=== PATIENT | female | born 1945 | race Caucasian/White ===

== ENCOUNTER 2020-11-06 11:26 | Day surgery (SDC) | payer MEDICARE ==
[2020-11-06] VITALS (10 sets, daily range): BP systolic 107–145; BP diastolic 68–87
[~2020-11-06] VITALS: Ht 165.1 cm; Wt 47.7 kg
[~2020-11-06 11:26] MED LIST: CALC300T4 PO; CHOL200035 PO; ESCI10TA PO; ESTR10IN PO; LISI10TA27 PO; MAGN200T5 PO; MIRA25TA PO; PRAV40TA3 PO; TRET40CR9 TOP
[2020-11-06] MEDS ORDERED: normal saline 1000ml 1,000 ML IV PRN (11:55)
[2020-11-06] MEDS ORDERED: LIDOcaine 1%/PF 5ML 10 MG/ML VIAL ONE (12:40)
[2020-11-06] MEDS ORDERED: glucagon, human recombinant 1mg kit ONE (12:40)
[2020-11-06] MEDS ORDERED: fentaNYL/PF 50MCG/1 ML 2ML syringe ONE (12:41)
[2020-11-06] MEDS ORDERED: iohexol 300 MG/1 ML 50ml polymer ONE (12:41)
[2020-11-06] MEDS ORDERED: midazolam 1 mg/ML 2ml injection ONE (12:41)
[2020-11-06] MEDS ORDERED: ALBU8.5H8 INH (12:53)
[2020-11-06] MEDS ORDERED: FAMO-128 PO (12:53)
[2020-11-06] MEDS ORDERED: LORA10TA7 PO (12:53)
[2020-11-06] MEDS ORDERED: OLAN2.5T3 PO (12:53)
[2020-11-06] MEDS ORDERED: ONDA4TAB6 PO (12:53)
[2020-11-06] MEDS ORDERED: PROC-8 PO (12:53)
[2020-11-06] MEDS ORDERED: VITA100T PO (12:53)
[2020-11-06] MEDS ORDERED: DEXA1TAB PO (12:53)
[2020-11-06] MEDS ORDERED: HYDR28CR14 TOP (12:53)
[2020-11-06] MEDS ORDERED: MELA5TAB12 PO (12:53)
[2020-11-06] MEDS ORDERED: Magic Mouthwash PO (12:53)
[2020-11-06 13:53] LABS: BASOPHILS % (AUTO) 0.3 % (0-1); EOSINOPHILS % (AUTO) 0.1 % (0-6); HEMATOCRIT 41.7 % (35.0-45.0); HEMOGLOBIN 14.8 g/dl (12.0-16.0); LYMPHOCYTES # (AUTO) 1.1 X10'3 (1.1-4.8); LYMPHOCYTES % (AUTO) 13.3 % (21-51); MEAN CORPUSCULAR HEMOGLOBIN 32.9 PG (27.0-31.0); MEAN CORPUSCULAR HGB CONC 35.6 g/dL (33.0-36.5); MEAN CORPUSCULAR VOLUME 92.4 FL (78-98); MEAN PLATELET VOLUME 6.5 FL (7.4-10.4); MONOCYTES # (AUTO) 0.9 X10'3 (0-0.9); MONOCYTES % (AUTO) 10.7 % (2-12); NEUTROPHILS # (AUTO) 6.2 X10'3 (1.8-7.7); NEUTROPHILS % (AUTO) 75.6 % (42-75); PLATELET COUNT 375 X10'3 (140-440); RED BLOOD COUNT 4.51 X10'6 (4.20-5.60); RED CELL DISTRIBUTION WIDTH 16.1 % (11.5-14.5); WHITE BLOOD COUNT 8.2 X10'3 (4.5-11.0)
[2020-11-06] MEDS ORDERED: zinc oxide ointment 30gm tube TP PRN (14:35)
[2020-11-06] MEDS ORDERED: ketorolac tromethamine 15mg/ml inj. IV ONE (17:10)
[2020-11-06] MEDS ORDERED: HYDROmorphone inj. 0.5 MG/0.5 ML DISP.SYRIN IV ONE (17:35)
== END 2020-11-06 18:10 | disposition home or self-care (01) ==
LOC: SSTAY O 11:26
PROVIDERS: ATTEND Radiology Vascular & Interventional Radiology
DX: R63.3 Feeding difficulties (principal); R13.10 Dysphagia, unspecified; Z88.1 Allergy status to other antibiotic agents; Z88.2 Allergy status to sulfonamides; Z79.899 Other long term (current) drug therapy; Z85.51 Personal history of malignant neoplasm of bladder; Z82.49 Family history of ischemic heart disease and other diseases of the circulatory system
CPT/HCPCS: 49440; 85025; 99152; 99153; B4087; C1713; J1170; J1610; J1885; J2250; J3010; J7030; Q9967